=== PATIENT | female | born 1990 | race Caucasian/White ===

== ENCOUNTER 2022-07-08 08:03 | Outpatient (CLI) | payer OTHER | END 2022-07-08 23:59 | disposition home or self-care (01) | LOC: LAB 08:03 | PROVIDERS: ATTEND Obstetrics & Gynecology | DX: Z01.812 Encounter for preprocedural laboratory examination (principal); Z20.822 Contact with and (suspected) exposure to COVID-19 ==

== ENCOUNTER 2022-07-09 08:49 | Day surgery (SDC) | payer OTHER ==
[~2022-07-09 08:49] MED LIST: FERRIC SUBSULFATE 8 ML SOLUTION TP ONE; SILVER NITRATE APPLICATOR STICK EACH TP ONE
[2022-07-09] MEDS ORDERED: ONDANSETRON 4 MG/2 ML VIAL IV ONE (08:50)
[2022-07-09] MEDS ORDERED: LIDOCAINE-MPF 2% 5 ML VIAL IJ ONE (08:50)
[2022-07-09] MEDS ORDERED: SEVOFLURANE 250 ML BOTTLE IH ONE (08:50)
[2022-07-09] MEDS ORDERED: METOCLOPRAMIDE HCL 10 MG/2 ML VIAL IV ONE (08:50)
[2022-07-09] MEDS ORDERED: SUCCINYLCHOLINE CHLORIDE 200 MG/10 ML VIAL IV ONE (08:50)
[2022-07-09] MEDS ORDERED: PROPOFOL 200 MG/20 ML BOTTLE IV ONE (08:50)
[2022-07-09] MEDS ORDERED: CEFAZOLIN 50 ML IV ONE (09:05)
[2022-07-09 09:27] LABS: HEMATOCRIT 39.4 % (31.2-41.9); MEAN CORPUSCULAR HEMOGLOBIN 32.8 uug (24.7-32.8); MEAN CORPUSCULAR VOLUME 96.5 fL (75.5-95.3); PLATELET COUNT (AUTO) 235 K/uL (179-408)
[2022-07-09 09:37] LABS: CREATININE 0.9 mg/dL (0.6-1.3)
[2022-07-09 09:42] LABS: BILIRUBIN,TOTAL 0.3 mg/dL (0.2-1.0); TOTAL PROTEIN, SERUM 7.1 g/dL (6.4-8.2)
[2022-07-09 09:48] LABS: *BILIRUBIN,URIN NEGATIVE (NEGATIVE); *BLOOD, URINE NEGATIVE (NEGATIVE); *CLARITY,URINE CLEAR (CLEAR); *COLOR,URINE YELLOW (YELLOW); *KETONES,URINE NEGATIVE (NEGATIVE); *UROBILINOGEN,URINE 0.2 E.U./dl (NORMAL); LEUKOCYTE ESTERASE ,URINE NEGATIVE (NEGATIVE); NITRITE, URINE NEGATIVE (NEGATIVE); UGLUCOSE NEGATIVE (NEGATIVE)
[2022-07-09 09:59] LABS: *URINE HCG, QUAL NEGATIVE (NEGATIVE)
[2022-07-09] MEDS ORDERED: MIDAZOLAM HCL 2 MG/2 ML VIAL ONE (10:04)
[2022-07-09] MEDS ORDERED: FENTANYL CITRATE 250 MCG/5 ML AMPUL ONE (10:05)
[2022-07-09] MEDS ORDERED: SUCCINYLCHOLINE CHLORIDE 200 MG/10 ML VIAL ONE (10:05)
[2022-07-09] MEDS ORDERED: FAMOTIDINE. 20 MG/2 ML VIAL IV ONE (10:05)
[2022-07-09] MEDS ORDERED: BUPIVACAINE/EPI PF 0.25% 10 ML VIAL IJ ONE (11:10)
[2022-07-09] MEDS ORDERED: ACETAMINOPHEN ES 500 MG TABLET ONE (13:07)
== END 2022-07-09 13:47 | disposition home or self-care (01) ==
LOC: DS 08:49
PROVIDERS: ATTEND Obstetrics & Gynecology
DX: R89.6 Abnormal cytological findings in specimens from other organs, systems and tissues (principal); R87.810 Cervical high risk human papillomavirus (HPV) DNA test positive; E66.9 Obesity, unspecified; F41.9 Anxiety disorder, unspecified; Z85.3 Personal history of malignant neoplasm of breast; Z79.01 Long term (current) use of anticoagulants; Z79.899 Other long term (current) drug therapy; Z98.890 Other specified postprocedural states
CPT/HCPCS: 57520; 80053; 36415; 85025; 84703; 85730; 81003; 58301; J3490 ×2; J0690; J2250; J0330; J3010; J7120; A4663; A9150; J2405; J2765